=== PATIENT | female | born 1945 | race Caucasian/White ===

== ENCOUNTER 2025-04-13 22:23 | Emergency (ER) | payer OTHER, SELFPAY ==
[2025-04-13 22:33] VITALS: BP 149/65
[2025-04-13 22:40] VITALS: BMI 22.3
[2025-04-13 22:50] LABS: Hematocrit 31.8 % (37.0-47.0); Hemoglobin 10.4 g/dL (12.0-16.0); Mean Corp Hgb Conc. 32.7 g/dL (33.0-37.0); Mean Corpuscular Volume 81.5 fL (81.0-99.0); Nucleated Red Blood Cells % 0 %; Platelet Count 206 10^3/uL (130-400); Red Cell Dist. Width 14.2 % (11.5-14.5)
[2025-04-13 23:00] VITALS: BP 130/41
[2025-04-13 23:01] LABS: INR 1.00; PT 13.5 Sec (11.4-14.6)
[2025-04-13 23:10] LABS: ALT (SGPT) 16 U/L (0-35); AST (SGOT) 29 U/L (14-36); Albumin 3.7 g/dl (3.5-5.0); Alkaline Phosphatase 114 U/L (38-126); Blood Urea Nitrogen 35 mg/dl (7-17); Calcium 9.2 mg/dl (8.4-10.2); Carbon Dioxide 27 mmol/L (22-30); Chloride 105 mmol/L (98-107); Estimated Creatinine Clearance 56 ml/min; Glucose 101 mg/dl (70-99); Potassium 4.0 mmol/L (3.5-5.1); Sodium 139 mmol/L (135-145); Total Protein 6.3 g/dl (6.3-8.2); eGFR > 60.00
[2025-04-13 23:15] LABS: Troponin I < 0.012 ng/ml
[2025-04-14] VITALS: BP 134/69
[2025-04-14 01:00] VITALS: BP 152/67
[2025-04-14 02:00] VITALS: BP 133/53
[2025-04-14 02:01] LABS: Troponin I < 0.012 ng/ml
--- NOTE | 2025-04-14 02:49 | ED.GENMED ---
History of Present Illness
General
Chief Complaint: Chest Pain
Time Seen by Provider: 04/13/25 22:55
History of Present Illness
History of Present Illness:
.
Phy Exam
Physical Exam
Physical Exam:
.
Scores
Heart Score for Chest Pain Patients
STEMI patient?: Not applicable
Course
Orders/Labs/Results
Orders:
Orders
04/13/25 22:26
Electrocardiogram (*1) Urgent
Reason for Study: Chest Pain
EKG- Treatment ONCE
04/13/25 22:41
Complete Blood Count/With Diff Urgent
Comprehensive Metabolic Panel Urgent
Prothrombin Time Urgent
Troponin I Urgent
04/14/25 01:13
Troponin I Urgent
04/14/25 02:49
Electrocardiogram (*1) Urgent
Reason for Study: Chest Pain
04/14/25 02:50
EKG- Treatment ONCE
Abnormal Lab Results
04/13/25
22:41
RBC 3.90 L 10^6/uL
(4.20-5.40)
Hgb 10.4 L g/dL
(12.0-16.0)
Hct 31.8 L %
(37.0-47.0)
MCH 26.7 L pg
(27.0-31.0)
MCHC 32.7 L g/dL
(33.0-37.0)
Absolute Monos (auto) 0.7 H 10^3/uL
(0.1-0.6)
Monocytes % 13.7 H %
(1.7-9.3)
BUN 35 H mg/dl
(7-17)
Glucose 101 H mg/dl
(70-99)
04/13/25 22:41
04/13/25 22:41
Vital Signs
Initial and Last Documented VS:
Initial Vital Signs
BP
149/65
04/13/25 22:33
Last Documented Vital Signs
Pulse Resp BP Pulse Ox
60 14 137/54 97
04/14/25 05:45 04/14/25 05:45 04/14/25 05:00 04/14/25 05:45
*Pulse Oximetry
SaO2: 94
Oxygen Mode of Delivery: Room air
Patient hypoxic: no
*Critical Care Note
Total Time (30-74mins, 75-104mins- exclusive of procedures): Not Applicable
Update Note
Update Note:
Initial EKG shows normal sinus rhythm rate of 61 with normal intervals, normal axis. No evidence of acute ischemia present. No old EKG available for comparison.
ED Attending Note
-
Portions of this chart may have been created with voice recognition software.� Occasional wrong word or��sound alike� substitutions may have occurred due to the inherent limitations of voice recognition software.
Discharge Plan
Departure
Patient Disposition: Home (Routine Discharge)
Date of Disposition: 04/14/25
Time of Disposition: 02:48
Patient with high blood pressure during this ER visit?: Yes
Discharge Problem:
Chest pain
Instructions: Chest Pain NON-[facility] [place] [facility] Follow Up, BLOOD PRESSURE
Referrals:
Bret Gordon IV, DO [Family Provider, Family Practice]
Activity Restrictions/Additional Instructions:
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
Thank You for choosing [facility].
It was a pleasure meeting you and taking part in your care. We hope for your continued healing and wellness.
Please read discharge instructions in their entirety. However, they are for general education and may not describe your exact diagnosis at discharge. Information on your ER visit and medical conditions were discussed with you along with appropriate
follow up information...
If indicated, please take your medications as instructed and indicated on discharge paperwork.
Please schedule a follow up appointment as directed. Call to schedule an appointment
Please return to the emergency department with ANY change in, persisting, or worsening of symptoms. If any of your symptoms do not improve, or persist, or become more severe within 6-12 hours, please return to the emergency department for further
care.
Please return to the emergency department if you develop a headache, neck pain/stiffness, fever greater than 100.4F, chest pain, shortness of breath, persistent nausea, vomiting, slurred speech, difficulty walking, numbness/tingling, weakness, signs
of infection or any other symptoms that are worrisome to you.
If you have any questions or concerns please do not hesitate to call the Hospital at or E-mail me directly at [email or web address]
Interventions
Interventions:
*Risk Screen - Suicide Last Done: 04/13/25 22:47
*General Assessment Last Done: 04/13/25 22:46
*Neglect/Abuse Screening Last Done: 04/13/25 22:46
*ED- Fall Risk Assessment Last Done: 04/13/25 22:46
*ED COVID-19 Vaccine History Last Done: 04/13/25 22:46
*Nursing Disposition Last Done: 04/14/25 06:00
ED- Cardiac Assessment Last Done: 04/13/25 23:38
Discharge Date and Time
Discharge Date/Time: 04/14/25 06:00
Print Language: [id number]
[2025-04-14 03:00] VITALS: BP 126/50
[2025-04-14 04:00] VITALS: BP 134/52
[2025-04-14 05:00] VITALS: BP 137/54
== END 2025-04-14 06:00 | disposition home or self-care (01) ==
LOC: EMR 22:23
PROVIDERS: Emergency Medicine; EMERGENCY PHYSICIAN Student in an Organized Health Care Education/Training Program; FAMILY PHYSICIAN Family Medicine
DX: R07.9 Chest pain, unspecified (principal); R03.0 Elevated blood-pressure reading, without diagnosis of hypertension
CPT/HCPCS: 99284; 80053; 84484; 85025; 85610; 93005